=== PATIENT | female | born 1935 | race American Indian/Alaskan Native ===

== ENCOUNTER 2017-05-21 08:34 | Outpatient (CLI) | payer MEDICARE, OTHER ==
--- NOTE | 2017-05-21 09:04 | XRay Report ---
Right knee 4 views: History: Knee pain. Findings: There is total knee replacement noted. The kidneys and the femoral component is anatomic in alignment. Soft tissue swelling at the dorsal aspect of the knee joint. No acute fracture. No previous studies available for comparison. Next Impression: Soft tissue swelling. Stable total knee.
== END 2017-05-21 08:35 | disposition home or self-care (01) ==
LOC: SPVIMAG 08:34
PROVIDERS: ATTEND Orthopaedic Surgery Sports Medicine
DX: M25.561 Pain in right knee (principal); M25.461 Effusion, right knee; Z96.651 Presence of right artificial knee joint

== ENCOUNTER 2018-10-31 09:06 | Outpatient (CLI) | payer MEDICARE, OTHER ==
--- NOTE | 2018-10-31 10:50 | Mammography Report ---
BILATERAL DIGITAL SCREENING MAMMOGRAM with CAD: 10/31/18 09:06:00 CLINICAL: Routine screening. COMPARISON: 09/22/15 and 09/20/14 FINDINGS: There are bilateral scattered areas of fibroglandular density. 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 No mass, architectural distortion or suspicious calcifications. IMPRESSION: No mammographic evidence of malignancy. BI-RADS CATEGORY: 2 - - Benign RECOMMENDATION: Routine mammographic screening in one year. COMMENT: Patient follow-up letters are generated by our [employer] application.
== END 2018-10-31 09:07 | disposition home or self-care (01) ==
LOC: MAMMO 09:06
PROVIDERS: ATTEND Internal Medicine
DX: Z12.31 Encounter for screening mammogram for malignant neoplasm of breast (principal)
CPT/HCPCS: 77067

== ENCOUNTER 2018-11-25 10:08 | Outpatient (CLI) | payer MEDICARE, OTHER ==
--- NOTE | 2018-11-25 15:36 | Mammography Report ---
BONE DEXA:11/25/18 CLINICAL: Postmenopausal COMPARISON: 09/22/15 and 03/21/12 TECHNIQUE: Two site bone DEXA performed on an Hologic scanner. FINDINGS: The average BMD of the lumbar spine L1-L4 is 0.883g/cm squared with a T-score of -1.5 and a Z-score of +0.6. This compares to 0.865 g/cm squared on the last exam and represents a +2.1% change in BMD from the last exam and a +3.1% change from baseline. The average BMD of the left hip is 0.727g/cm squared with a T-score of -1.8 and a Z-score of -0.3.This compares to 0.732g/cm squared on the last exam and represents a -0.7% change in BMD from the last exam and a -6.3% change from baseline. IMPRESSION: 1.WHO classification: Osteopenia with increased fracture risk based on both lumbar spine and left hip measurements. A modest improvement in spine BMD compared to previous exams. 2.WHO classification: Osteopenia with increased fracture risk based on left hip measurements. A modest decline in left hip BMD compared to the last exam and a moderate decline from baseline.. 3.The FRAX 10 year fracture probability for a major osteoporotic fracture is 6.3%. 4.The FRAX 10 year fracture probability for hip fracture is 1.6%. Note: FRAX version 3.01. Fracture probability calculated for an untreated patient. Fracture probability may be lower if the patient has received treatment. RECOMMENDATION: Clinical correlation and routine screening. DEFINITIONS: BMD = Bone Mineral Density T-score = BMD related to mean peak bone mass of young adult (mean expressed in Standard Deviation) Z-score = Age matched BMD expressed in SD World Health Organization (WHO) Diagnostic Criteria Normal T-score > -1 SD Osteopenia T-score between -1 and -2.4 SD Osteoporosis T-score -2.5 SD or below NOTE: BMD is not the only risk factor for fracture; also consider factors such as the patient's age, risk of falling, previous osteoporotic fracture, family history of osteoporotic fractures, current smoker, and low body weight. All treatment decisions require clinical judgment and consideration of individual patient factors, including patient preferences, comorbidities, previous drug use and wrist factors not captured in the FRAX model (e.g. frailty, falls, vitamin D deficiency, increased bone turnover, interval significant decline in BMD). Z-scores are not calculated if >80 years of age.
== END 2018-11-25 10:09 | disposition home or self-care (01) ==
LOC: MAMMO 10:08
PROVIDERS: ATTEND Internal Medicine
DX: Z13.820 Encounter for screening for osteoporosis (principal); M85.88 Other specified disorders of bone density and structure, other site; M81.0 Age-related osteoporosis without current pathological fracture; Z78.0 Asymptomatic menopausal state
CPT/HCPCS: 77080

== ENCOUNTER 2020-11-29 09:41 | Outpatient (CLI) | payer MEDICARE, OTHER ==
--- NOTE | 2020-11-29 10:43 | Mammography Report ---
DIGITAL SCREENING MAMMOGRAM WITH CAD, 11/29/2020 CLINICAL INFORMATION / INDICATION: Routine screening mammography. TECHNIQUE: Digital bilateral 2D mammography was obtained in the craniocaudal and mediolateral obliqu e projections. This examination was interpreted with the benefit of Computer-Aided Detection analysis . COMPARISON: 10/31/2018, 09/22/2015 FINDINGS: Breast Density: There are scattered areas of fibroglandular density. No new dominant mass, suspicious calcifications, or architectural distortion in either breast. Previously described bilateral ductal ectasia has not significantly changed. A cyst/mass seen immedia tely deep to the right nipple is unchanged as well and measures 2.0 x 1.6 cm. IMPRESSION: No mammographic evidence of malignancy. Follow up recommendation: Routine yearly BI-RADS Category 2: Benign. A "normal" or negative report should not discourage follow up or biopsy of a clinically significant f inding. A written summary of these findings will be mailed to the patient. The patient will be entered into a mammography reporting system which will generate a reminder letter for the patient's next appointmen t at the appropriate interval. The [employer] recommends yearly mammograms starting at age 40 and continuing as l olaf as a woman is in good health. Breast MRI is recommended for women with an approximate 20-25% or greater lifetime risk of breast cancer, including women with a strong family history of breast or ova nyasia cancer or who have been treated for Hodgkin's disease. Signer Name: Donta Heredia MD Signed: 11/29/2020 10:39 AM Workstation Name: [id number]
== END 2020-11-29 09:42 | disposition home or self-care (01) ==
LOC: SPVWC 09:41
PROVIDERS: ATTEND Internal Medicine
DX: Z12.31 Encounter for screening mammogram for malignant neoplasm of breast (principal); N64.89 Other specified disorders of breast
CPT/HCPCS: 77067